=== PATIENT | female | born 1980 | race Caucasian/White ===

== ENCOUNTER → 2017-12-21 | Outpatient (CLI) | payer OTHER | LOC: MC.RAD 09:17 | DX: N63.10 Unspecified lump in the right breast, unspecified quadrant (principal) ==

== ENCOUNTER → 2021-04-27 | Outpatient (CLI) | payer OTHER | LOC: MC.RAD 10:47 | DX: N64.89 Other specified disorders of breast (principal) ==

== ENCOUNTER → 2023-09-05 | Outpatient (CLI) | payer OTHER | LOC: MC.RAD 13:15 | DX: Z12.31 Encounter for screening mammogram for malignant neoplasm of breast (principal) ==